=== PATIENT | male | born 1950 | race Caucasian/White ===

== ENCOUNTER 2022-07-05 07:58 | Observation (INO) ==
[~2022-07-05 07:58] MED LIST: Buffered Lidocaine 1% SYRIN 1 ml INTRADERM ONE; Dexamethasone IV 4 MG/ML VIAL 1 ml VIAL ONE; Famotidine IV 10 MG/ML 2 ml VIAL (20 mg) IV ONE; Famotidine IV 10 MG/ML 2 ml VIAL (20 mg) ONE; Lactated Ringers 1000 ml BAG 1,000 ML IV SCH; ceFAZolin 2 GM PREMIX 2 GM/50 ML BAG ONE
[2022-07-05 08:39] LABS: Activated Partial Thrombo Time 28.4 seconds (26.0-38.0); INR 1.1 (0.89-1.11)
[2022-07-05] MEDS ORDERED: Midazolam 2 mg/2 ml VIAL 1 mg/ml 2 ml VIAL (2 mg) ONE (09:51)
[2022-07-05] MEDS ORDERED: Ondansetron 4 mg VIAL 2 MG/ML 2 ml VIAL ONE (09:51)
[2022-07-05] MEDS ORDERED: Propofol 10 MG/ML 20 ML BTL ONE ×3 (09:51→12:56)
[2022-07-05] MEDS ORDERED: fentaNYL 100 mcg/2 ml 50 MCG/ML VIAL ONE ×2 (09:51→14:13)
[2022-07-05] MEDS ORDERED: Lidocaine 2% PF 5 ML VIAL ONE (09:51)
[2022-07-05] MEDS ORDERED: Acetaminophen IV 1 GM/100ML 1,000 MG/100 ML BAG IV ONE (10:58)
[2022-07-05] MEDS ORDERED: Prochlorperazine 5 mg/ml 2 ml VIAL (10 mg) IV PRN (11:00)
[2022-07-05] MEDS ORDERED: Naloxone 0.4 mg VIAL 0.4 mg/ml 1 ml VIAL IV PRN (11:00)
[2022-07-05] MEDS ORDERED: Glycopyrrolate IV 0.2 MG/ML 1 ML VIAL ONE ×2 (11:17→11:30)
[2022-07-05] MEDS ORDERED: Ondansetron 4 mg VIAL 2 MG/ML 2 ml VIAL IV PRN (11:18)
[2022-07-05] MEDS ORDERED: Lactulose 30 ml UDC PO PRN (11:18)
[2022-07-05] MEDS ORDERED: Magnesium Hydroxide LIQ 30 ML UDC PO PRN (11:18)
[2022-07-05] MEDS ORDERED: Ondansetron ODT 4 mg TAB 4 MG TAB PO PRN (11:18)
[2022-07-05] MEDS ORDERED: Morphine 2 MG/ML SYRINGE IV PRN (11:18)
[2022-07-05] MEDS ORDERED: Enoxaparin 40 MG/0.4 ML SYR SUBCUT SCH (12:00)
[2022-07-05] MEDS ORDERED: Phenylephrine IV 10 MG/ML 1 ml VIAL ONE (12:44)
[2022-07-05] MEDS ORDERED: Dextrose 50% Syringe 50 ml 25 GM/50 ML SYRINGE IV PUSH PRN (13:41)
[2022-07-05] MEDS: fentaNYL 100 mcg/2 ml 50 MCG/ML VIAL IV PRN ×2 (14:14→14:24)
[2022-07-05] MEDS: Lactated Ringers 1000 ml BAG 1,000 ML IV SCH (16:29)
[2022-07-05] MEDS ORDERED: Warfarin DAILY REMINDER **NOTE FOLLOW UP SCH (17:00)
[2022-07-05] MEDS: Enoxaparin 100 MG/ML SYR SUBCUT SCH (17:38)
[2022-07-05] MEDS ORDERED: CMCS: Alfuzosin ER 10 mg TAB.ER (NF) 10 MG TAB.ER PO SCH (21:00)
[2022-07-05] MEDS ORDERED: Aspirin EC 81 mg TAB.EC (enteric coated) PO SCH (21:00)
[2022-07-05] MEDS ORDERED: Cholecalciferol (VIT D3) 1,000 unit TAB PO SCH (21:00)
[2022-07-05] MEDS: ceFAZolin 1 GM ADVAN 1 GM in NS 0.9% 50 ML 50 ML IVPB SCH (21:48)
[2022-07-05] MEDS: Magnesium Hydroxide LIQ 30 ML UDC PO SCH (22:07)
[2022-07-06] MEDS: Lactated Ringers 1000 ml BAG 1,000 ML IV SCH (03:03)
[2022-07-06] MEDS: ceFAZolin 1 GM ADVAN 1 GM in NS 0.9% 50 ML 50 ML IVPB SCH ×2 (03:09→10:27)
[2022-07-06 06:05] LABS: Hematocrit 35 % (42-52); Hemoglobin 11.7 g/dL (14.0-18.0); Mean Platelet Volume 9.7 fL (7.4-10.4); Platelet Count 173 10^3/uL (150-450)
[2022-07-06 06:24] LABS: Calcium 8.5 mg/dL (8.6-10.3); Potassium 4.2 mmol/L (3.5-5.0); eGFR CKD-EPI 85.6 (>60)
[2022-07-06] MEDS: Enoxaparin 100 MG/ML SYR SUBCUT SCH (08:00)
[2022-07-06] MEDS: Magnesium Hydroxide LIQ 30 ML UDC PO SCH (08:00)
[2022-07-06] MEDS ORDERED: Vitamin THERAPEUTIC TAB PO SCH (09:00)
[2022-07-06 09:42] LABS: INR 1.28 (0.89-1.11)
[2022-07-06 11:40] VITALS: BP 112/63
== END 2022-07-06 15:50 | disposition home or self-care (01) ==
LOC: AA 07:58 → INTOOBSV 07:58 → SSU 16:16
PROVIDERS: ADMIT Orthopaedic Surgery Adult Reconstructive Orthopaedic Surgery; ATTEND Orthopaedic Surgery Adult Reconstructive Orthopaedic Surgery